=== PATIENT | male | born 1950 | race Caucasian/White ===

== ENCOUNTER 2019-08-23 08:19 | Inpatient (IN) | payer OTHER ==
[~2019-08-23] VITALS: Ht 188 cm; Wt 100.0 kg
[2019-08-23] MEDS ORDERED: methylPREDNISolone sod succ 125mg/2ml vial IV ONE (08:35)
[2019-08-23] MEDS ORDERED: normal saline 1000ML IV soln IVB ONE (08:35)
[2019-08-23] MEDS ORDERED: albuterol 2.5 MG/3 ML nebule CONTNEB PRN (08:35)
[2019-08-23 09:10] LABS: BASOPHILS % (AUTO) 0.3 % (0-1); EOSINOPHILS # (AUTO) 0.2 X10'3 (0-0.9); EOSINOPHILS % (AUTO) 3.6 % (0-6); HEMATOCRIT 43.4 % (42.0-52.0); HEMOGLOBIN 14.5 g/dl (14.0-17.9); LYMPHOCYTES % (AUTO) 16.6 % (21-51); MEAN CORPUSCULAR HEMOGLOBIN 28.8 PG (27.0-31.0); MEAN CORPUSCULAR HGB CONC 33.5 g/dL (33.0-36.5); MEAN PLATELET VOLUME 8.1 FL (7.4-10.4); MONOCYTES # (AUTO) 0.4 X10'3 (0-0.9); MONOCYTES % (AUTO) 7.3 % (2-12); NEUTROPHILS # (AUTO) 4.3 X10'3 (1.8-7.7); NEUTROPHILS % (AUTO) 72.2 % (42-75); PLATELET COUNT 168 X10'3 (140-440); RED BLOOD COUNT 5.05 X10'6 (4.70-6.10); RED CELL DISTRIBUTION WIDTH 17.6 % (11.5-14.5)
[2019-08-23 09:22] LABS: ALANINE AMINOTRANSFERASE 21 U/L (12-78); ALBUMIN 3.6 G/DL (3.4-5.0); ALBUMIN/GLOBULIN RATIO 0.8 (1.1-1.5); ALKALINE PHOSPHATASE 97 IU/L (46-116); ANION GAP 9 (8-16); ASPARTATE AMINO TRANSFERASE 35 U/L (10-37); BILIRUBIN,TOTAL 0.7 MG/DL (0.1-1.0); BLOOD UREA NITROGEN 7 MG/DL (7-18); BUN/CREATININE RATIO 7.4 (5.4-32.0); CALCIUM 8.9 MG/DL (8.5-10.1); CHLORIDE 107 MMOL/L (99-107); CREATININE 0.94 MG/DL (0.60-1.10); GLUCOSE 102 MG/DL (70-104); POTASSIUM 3.5 MMOL/L (3.5-5.1); SODIUM 144 MMOL/L (135-145); TOTAL CARBON DIOXIDE 27.9 MMOL/L (24-32); TOTAL PROTEIN 7.9 G/DL (6.4-8.2); eGFR 80 ML/MIN
[2019-08-23] MEDS ORDERED: iohexol 350MG/ML 100ml bottle IV ONE (09:36)
[2019-08-23] MEDS ORDERED: enoxaparin 80mg/0.8ml syringe SUBCUT ONE (10:40)
[2019-08-23] MEDS ORDERED: enoxaparin 100mg/ml syringe SUBCUT ONE (10:40)
[2019-08-23] MEDS ORDERED: HYDROcodone/acetaminophen 10/325mg tab PO ONE (11:45)
--- NOTE | 2019-08-23 11:50 | NUR ---
UNABLE TO SCAN MEDS IN ROOM. SCANNER NOT WORKING.
[2019-08-23] MEDS ORDERED: mag hydrox/Alum hydrox/simeth 30ml oral suspension PO PRN (12:00)
[2019-08-23] MEDS ORDERED: acetaminophen 325mg tablet PO PRN ×2 (12:00)
[2019-08-23] MEDS ORDERED: morphine 2 MG/ML inj. syringe IV PRN ×2 (12:00)
[2019-08-23] MEDS ORDERED: magnesium hydroxide 30ml (MOM) UD suspension PO PRN (12:00)
[2019-08-23] MEDS ORDERED: HYDROcodone/acetaminophen 5mg/325mg tablet PO PRN (12:00)
[2019-08-23] MEDS ORDERED: ondansetron/PF 4mg/2ml inj IV PRN (12:00)
[2019-08-23] MEDS ORDERED: NO HOME MEDS (12:11)
--- NOTE | 2019-08-23 12:24 | NUR ---
ADDRESS: [address] [place] [address], UNIT: 4, [facility]
--- NOTE | 2019-08-23 13:44 | NUR ---
Patient Sabino Hillyesenia; I have received report from Karen BALL in ER and had the opportunity to ask questions and assume patient care.
--- NOTE | 2019-08-23 14:00 | NUR ---
Pt brought to floor at 1400. Pt alert and oriented. Pt oriented to room and call light. Vitals WNL.
[2019-08-23 15:00] VITALS: BP 148/97
[2019-08-23 18:00] VITALS: BP 148/96
--- NOTE | 2019-08-23 18:00 | NUR ---
Problems reprioritized. Patient report given, questions answered & plan of care reviewed with Neeru BALL.
--- NOTE | 2019-08-23 18:08 | NUR ---
Patient in room PCU 3026. I have received report from QUINN Montejo and had the opportunity to ask questions and assume patient care.
[2019-08-23] MEDS: HYDROcodone/acetaminophen 10/325mg tab PO PRN ×2 (19:29→23:45)
[2019-08-23] MEDS: apixaban 5mg tablet PO SCH (19:30)
[2019-08-23] MEDS ORDERED: enoxaparin 100mg/ml syringe SUBCUT SCH (20:00)
[2019-08-23 22:00] VITALS: BP 139/81
--- NOTE | 2019-08-23 22:26 | NUR ---
Patient's son called and said he will bring in list of meds tomorrow if he can rent a car and come down from [place].
[2019-08-24 02:00] VITALS: BP 122/88
--- NOTE | 2019-08-24 03:37 | NUR ---
MD called and notified for episodes of Bradycardia. Patient is usually sinus tachycardic 100s and 110s, but HR sustained in the 50s for an hour. Now his HR is in the 80s. MD said it's a possible sign the DVT is resolving. No new orders at this time.
[2019-08-24] MEDS: diphenhydrAMINE 25mg capsule PO PRN ×2 (04:21→13:04)
--- NOTE | 2019-08-24 04:29 | NUR ---
notified for new onset itching of face and bilateral arms. New order was given for PO Benedryl 25mg tab give now. Patient thinks it could be the [place] or the petroleum he applied to his lips that's suppose to be for his leg. Addendum: 08/24/19 at 0431 by Neeru Guerra RN No rashes or redness noted.
[2019-08-24 06:00] VITALS: BP 154/88
--- NOTE | 2019-08-24 06:20 | NUR ---
Patient in room PCU 3026. I have received report from Neeru BALL and had the opportunity to ask questions and assume patient care.
--- NOTE | 2019-08-24 06:20 | NUR ---
Problems reprioritized. Patient report given, questions answered & plan of care reviewed with QUINN Montejo.
[2019-08-24 06:25] LABS: BASOPHILS % (AUTO) 0.1 % (0-1); EOSINOPHILS % (AUTO) 0 % (0-6); HEMATOCRIT 39.9 % (42.0-52.0); HEMOGLOBIN 13.6 g/dl (14.0-17.9); LYMPHOCYTES # (AUTO) 0.5 X10'3 (1.1-4.8); LYMPHOCYTES % (AUTO) 8.9 % (21-51); MEAN CORPUSCULAR HEMOGLOBIN 29.3 PG (27.0-31.0); MEAN CORPUSCULAR HGB CONC 34.2 g/dL (33.0-36.5); MEAN CORPUSCULAR VOLUME 85.6 FL (78-98); MEAN PLATELET VOLUME 8.3 FL (7.4-10.4); MONOCYTES # (AUTO) 0.3 X10'3 (0-0.9); MONOCYTES % (AUTO) 5.7 % (2-12); NEUTROPHILS # (AUTO) 4.7 X10'3 (1.8-7.7); NEUTROPHILS % (AUTO) 85.3 % (42-75); PLATELET COUNT 171 X10'3 (140-440); RED BLOOD COUNT 4.65 X10'6 (4.70-6.10); RED CELL DISTRIBUTION WIDTH 17.4 % (11.5-14.5); WHITE BLOOD COUNT 5.5 X10'3 (4.5-11.0)
[2019-08-24 06:36] LABS: ALANINE AMINOTRANSFERASE 24 U/L (12-78); ALBUMIN 3.3 G/DL (3.4-5.0); ALBUMIN/GLOBULIN RATIO 0.8 (1.1-1.5); ALKALINE PHOSPHATASE 91 IU/L (46-116); ANION GAP 10 (8-16); ASPARTATE AMINO TRANSFERASE 32 U/L (10-37); BILIRUBIN,TOTAL 0.4 MG/DL (0.1-1.0); BLOOD UREA NITROGEN 19 MG/DL (7-18); BUN/CREATININE RATIO 18.1 (5.4-32.0); CALCIUM 8.7 MG/DL (8.5-10.1); CHLORIDE 105 MMOL/L (99-107); CREATININE 1.05 MG/DL (0.60-1.10); GLUCOSE 145 MG/DL (70-104); POTASSIUM 3.9 MMOL/L (3.5-5.1); SODIUM 140 MMOL/L (135-145); TOTAL CARBON DIOXIDE 25.3 MMOL/L (24-32); TOTAL PROTEIN 7.6 G/DL (6.4-8.2); eGFR 70 ML/MIN
[2019-08-24] MEDS: ipratropium/albuterol 3ml nebule NEB PRN ×2 (08:16→18:54)
[2019-08-24] MEDS: apixaban 5mg tablet PO SCH ×2 (09:06→19:47)
[2019-08-24 11:00] VITALS: BP 133/78
[2019-08-24] MEDS ORDERED: METO25TA6 PO ×2 (11:28→11:42)
[2019-08-24] MEDS ORDERED: NITR0.4T51 SL (11:28)
[2019-08-24] MEDS ORDERED: BACL-11 PO (11:28)
[2019-08-24] MEDS ORDERED: ATOR10TA PO (11:28)
[2019-08-24] MEDS ORDERED: AMLO5TAB4 PO (11:28)
[2019-08-24] MEDS ORDERED: OMEP-50 PO (11:28)
[2019-08-24] MEDS ORDERED: ASPI-1265 PO (11:28)
[2019-08-24] MEDS ORDERED: GABA-532 PO (11:28)
[2019-08-24] MEDS ORDERED: FERR325T32 PO (11:42)
[2019-08-24] MEDS ORDERED: BACL20TA PO (11:42)
--- NOTE | 2019-08-24 11:50 | NUR ---
PAGER ID: [phone] MESSAGE: Re: Sabino Holman, room: 3026A. Med-rec complete and ready to review. -[place] PCU #[id number] Dr. arcos paged concerning Pt's home meds
[2019-08-24] MEDS: HYDROcodone/acetaminophen 10/325mg tab PO PRN (13:04)
[2019-08-24] MEDS ORDERED: nitroGLYCERIN 0.4mg SUBLingual tab SL PRN (13:40)
[2019-08-24 15:00] VITALS: BP 133/75
[2019-08-24] MEDS: baclofen 10mg tablet PO SCH ×2 (15:03→20:29)
[2019-08-24 18:00] VITALS: BP 139/93
--- NOTE | 2019-08-24 18:30 | NUR ---
Problems reprioritized. Patient report given, questions answered & plan of care reviewed with Kat BALL.
--- NOTE | 2019-08-24 18:42 | NUR ---
Patient in room U 3026. I have received report from QUINN MALDONADO and had the opportunity to ask questions and assume patient care. Addendum: 08/24/19 at 1842 by Lenore Green RN Amended: Links added.
[2019-08-24] MEDS: pantoprazole 40mg Tablet.DR PO SCH (19:46)
[2019-08-24] MEDS: metoprolol tartrate 12.5mg (1/2 tablet) PO SCH (19:47)
[2019-08-24] MEDS: gabapentin 300mg capsule PO SCH (19:47)
[2019-08-24] MEDS ORDERED: metoprolol tartrate 25mg tablet PO SCH (20:00)
[2019-08-24 22:00] VITALS: BP 116/68
[2019-08-25 02:00] VITALS: BP 134/74
--- NOTE | 2019-08-25 04:31 | NUR ---
tried to wean off patient and O2 and after an hour he started complaining if SOB after walking from the bathroom back to his bed, O2 sat was 87-91% with COPD history. Explained pt that weaning off from O2 is being part of the plan for d/c needs and stated that he will wean himself off on his own way. placed him 1L O2 and tolerating well with no complaints
[2019-08-25 05:35] LABS: BASOPHILS % (AUTO) 0.5 % (0-1); EOSINOPHILS # (AUTO) 0.1 X10'3 (0-0.9); EOSINOPHILS % (AUTO) 1.6 % (0-6); HEMATOCRIT 40.3 % (42.0-52.0); HEMOGLOBIN 13.8 g/dl (14.0-17.9); LYMPHOCYTES # (AUTO) 0.8 X10'3 (1.1-4.8); LYMPHOCYTES % (AUTO) 13.5 % (21-51); MEAN CORPUSCULAR HEMOGLOBIN 29.4 PG (27.0-31.0); MEAN CORPUSCULAR HGB CONC 34.3 g/dL (33.0-36.5); MEAN CORPUSCULAR VOLUME 85.9 FL (78-98); MEAN PLATELET VOLUME 7.9 FL (7.4-10.4); MONOCYTES # (AUTO) 0.3 X10'3 (0-0.9); MONOCYTES % (AUTO) 4.5 % (2-12); NEUTROPHILS # (AUTO) 4.5 X10'3 (1.8-7.7); NEUTROPHILS % (AUTO) 79.9 % (42-75); PLATELET COUNT 168 X10'3 (140-440); RED BLOOD COUNT 4.69 X10'6 (4.70-6.10); RED CELL DISTRIBUTION WIDTH 17.1 % (11.5-14.5); WHITE BLOOD COUNT 5.6 X10'3 (4.5-11.0)
--- NOTE | 2019-08-25 06:07 | NUR ---
Problems reprioritized. Patient report given, questions answered & plan of care reviewed with QUINN Benitez. Addendum: 08/25/19 at 0607 by Lenore Green RN Amended: Links added.
--- NOTE | 2019-08-25 06:08 | NUR ---
Patient in room PCU 3026. I have received report from Kat BALL and had the opportunity to ask questions and assume patient care.
[2019-08-25 06:10] LABS: ALANINE AMINOTRANSFERASE 40 U/L (12-78); ALBUMIN 3.3 G/DL (3.4-5.0); ALBUMIN/GLOBULIN RATIO 0.9 (1.1-1.5); ALKALINE PHOSPHATASE 82 IU/L (46-116); ANION GAP 7 (8-16); ASPARTATE AMINO TRANSFERASE 48 U/L (10-37); BILIRUBIN,TOTAL 0.4 MG/DL (0.1-1.0); BLOOD UREA NITROGEN 21 MG/DL (7-18); BUN/CREATININE RATIO 19.8 (5.4-32.0); CALCIUM 8.3 MG/DL (8.5-10.1); CHLORIDE 107 MMOL/L (99-107); CREATININE 1.06 MG/DL (0.60-1.10); GLUCOSE 89 MG/DL (70-104); POTASSIUM 4.2 MMOL/L (3.5-5.1); SODIUM 142 MMOL/L (135-145); TOTAL CARBON DIOXIDE 27.9 MMOL/L (24-32); TOTAL PROTEIN 7.1 G/DL (6.4-8.2); eGFR 69 ML/MIN
[2019-08-25] MEDS: HYDROcodone/acetaminophen 10/325mg tab PO PRN ×3 (06:13→20:18)
[2019-08-25] MEDS: diphenhydrAMINE 25mg capsule PO PRN ×2 (06:15→20:17)
--- NOTE | 2019-08-25 06:25 | NUR ---
Problems reprioritized. Patient report given, questions answered & plan of care reviewed with QUINN Harrison.
[2019-08-25 06:30] VITALS: BP 137/86
--- NOTE | 2019-08-25 06:30 | NUR ---
Patient in room PCU 3026. I have received report from QUINN Benitez and had the opportunity to ask questions and assume patient care.
[2019-08-25] MEDS: apixaban 5mg tablet PO SCH ×2 (07:45→20:17)
[2019-08-25] MEDS: pantoprazole 40mg Tablet.DR PO SCH ×2 (07:45→20:17)
[2019-08-25] MEDS: gabapentin 300mg capsule PO SCH ×2 (07:45→20:16)
[2019-08-25] MEDS: ferrous sulfate 325mg tablet PO SCH (07:45)
[2019-08-25] MEDS: baclofen 10mg tablet PO SCH ×3 (07:46→20:16)
[2019-08-25] MEDS: metoprolol tartrate 12.5mg (1/2 tablet) PO SCH ×2 (07:46→20:00)
[2019-08-25] MEDS: atorvastatin 10mg tablet PO SCH (07:46)
[2019-08-25] MEDS: aspirin 81mg tab.chew PO SCH (07:46)
[2019-08-25 11:00] VITALS: BP 115/72
[2019-08-25 15:00] VITALS: BP 136/78
[2019-08-25] MEDS: ipratropium/albuterol 3ml nebule NEB PRN ×2 (15:26→19:57)
[2019-08-25 18:15] VITALS: BP_SYST 119; BP_SYST 130; BP_DIAS 86; BP_DIAS 91
--- NOTE | 2019-08-25 18:45 | NUR ---
Patient in room PCU 3026. I have received report from Libia Hadley and had the opportunity to ask questions and assume patient care. Addendum: 08/25/19 at 1845 by Christy Hernandez RN Amended: Links added.
[2019-08-25] MEDS: budesonide 0.5mg/2ml UD nebule IH SCH (19:57)
[2019-08-25] MEDS: nystatin 15 GM powder TP SCH (20:21)
--- NOTE | 2019-08-25 20:21 | NUR ---
medicated for pain 8/10 back and neck hardly any from the right leg DVT at this time.
[2019-08-25 22:24] VITALS: BP 143/89
--- NOTE | 2019-08-25 22:51 | NUR ---
pt resting eyes closed no s&S of distress at this time.
--- NOTE | 2019-08-26 | NUR ---
pt inc of urine. skin care done and lien changed. nystatin powder applied after cleaning to the groin area. evs called to clean the floor pt was inc on the floor.
--- NOTE | 2019-08-26 00:20 | NUR ---
medicated pain 02/13 to back with norco per request.
[2019-08-26] MEDS: HYDROcodone/acetaminophen 10/325mg tab PO PRN ×4 (00:26→20:58)
--- NOTE | 2019-08-26 01:17 | NUR ---
bed alarm on pt with charge nurse encouraged to lay back down. pt is impulsive and not compliant to safety precautions that has been gone over with him.
[2019-08-26 02:00] VITALS: BP 119/75
--- NOTE | 2019-08-26 03:10 | NUR ---
pt resting without changes at this time.
--- NOTE | 2019-08-26 04:41 | NUR ---
pt resting eyes closed without changes at this time.
--- NOTE | 2019-08-26 05:10 | NUR ---
pt awoke to side of bed using urinal with Male Rn present for pt safety.
[2019-08-26 06:00] VITALS: BP 128/80
[2019-08-26 06:03] LABS: ALANINE AMINOTRANSFERASE 65 U/L (12-78); ALBUMIN/GLOBULIN RATIO 0.8 (1.1-1.5); ALKALINE PHOSPHATASE 83 IU/L (46-116); ANION GAP 5 (8-16); ASPARTATE AMINO TRANSFERASE 79 U/L (10-37); BASOPHILS % (AUTO) 0.5 % (0-1); BILIRUBIN,TOTAL 0.4 MG/DL (0.1-1.0); BLOOD UREA NITROGEN 17 MG/DL (7-18); BUN/CREATININE RATIO 16.5 (5.4-32.0); CALCIUM 8.3 MG/DL (8.5-10.1); CHLORIDE 106 MMOL/L (99-107); CREATININE 1.03 MG/DL (0.60-1.10); EOSINOPHILS # (AUTO) 0.1 X10'3 (0-0.9); GLUCOSE 95 MG/DL (70-104); HEMATOCRIT 43.1 % (42.0-52.0); HEMOGLOBIN 14.4 g/dl (14.0-17.9); LYMPHOCYTES # (AUTO) 0.6 X10'3 (1.1-4.8); LYMPHOCYTES % (AUTO) 15.3 % (21-51); MEAN CORPUSCULAR HEMOGLOBIN 28.9 PG (27.0-31.0); MEAN CORPUSCULAR HGB CONC 33.4 g/dL (33.0-36.5); MEAN CORPUSCULAR VOLUME 86.5 FL (78-98); MEAN PLATELET VOLUME 7.8 FL (7.4-10.4); MONOCYTES # (AUTO) 0.3 X10'3 (0-0.9); MONOCYTES % (AUTO) 8.3 % (2-12); NEUTROPHILS % (AUTO) 72.9 % (42-75); PLATELET COUNT 160 X10'3 (140-440); POTASSIUM 4.2 MMOL/L (3.5-5.1); RED BLOOD COUNT 4.98 X10'6 (4.70-6.10); RED CELL DISTRIBUTION WIDTH 17.1 % (11.5-14.5); SODIUM 139 MMOL/L (135-145); TOTAL CARBON DIOXIDE 27.8 MMOL/L (24-32); TOTAL PROTEIN 6.8 G/DL (6.4-8.2); WHITE BLOOD COUNT 4.1 X10'3 (4.5-11.0); eGFR 72 ML/MIN
--- NOTE | 2019-08-26 06:28 | NUR ---
Patient in room PCU 3026. I have received report from QUINN Harrison and had the opportunity to ask questions and assume patient care. Patient currently resting in bed, bed locked and low, call light in reach, no acute distress, will continue to monitor.
[2019-08-26] MEDS: pantoprazole 40mg Tablet.DR PO SCH ×2 (07:26→20:55)
[2019-08-26] MEDS: atorvastatin 10mg tablet PO SCH (07:27)
[2019-08-26] MEDS: metoprolol tartrate 12.5mg (1/2 tablet) PO SCH ×2 (07:27→20:54)
[2019-08-26] MEDS: apixaban 5mg tablet PO SCH ×2 (07:27→20:54)
[2019-08-26] MEDS: aspirin 81mg tab.chew PO SCH (07:27)
[2019-08-26] MEDS: ferrous sulfate 325mg tablet PO SCH (07:28)
[2019-08-26] MEDS: gabapentin 300mg capsule PO SCH ×2 (07:28→20:54)
[2019-08-26] MEDS: baclofen 10mg tablet PO SCH ×3 (07:28→20:53)
[2019-08-26] MEDS: nystatin 15 GM powder TP SCH ×2 (07:29→20:55)
[2019-08-26] MEDS: budesonide 0.5mg/2ml UD nebule IH SCH ×2 (09:36→20:25)
[2019-08-26] MEDS: ipratropium/albuterol 3ml nebule NEB PRN ×2 (09:36→20:25)
[2019-08-26] MEDS ORDERED: predniSONE 20 mg tablet PO ONE (10:05)
[2019-08-26] MEDS ORDERED: LIDOcaine/PRILOcaine 5gm cream TP PRN (10:50)
[2019-08-26 11:00] VITALS: BP 109/75
[2019-08-26 15:00] VITALS: BP 110/63
[2019-08-26 20:00] VITALS: BP 135/81
[2019-08-26] MEDS: diphenhydrAMINE 25mg capsule PO PRN (20:57)
[2019-08-27 02:00] VITALS: BP 112/79
[2019-08-27 05:40] LABS: ALANINE AMINOTRANSFERASE 99 U/L (12-78); ALBUMIN 3.3 G/DL (3.4-5.0); ALBUMIN/GLOBULIN RATIO 0.8 (1.1-1.5); ALKALINE PHOSPHATASE 85 IU/L (46-116); ANION GAP 3 (8-16); ASPARTATE AMINO TRANSFERASE 98 U/L (10-37); BILIRUBIN,TOTAL 0.4 MG/DL (0.1-1.0); BLOOD UREA NITROGEN 16 MG/DL (7-18); BUN/CREATININE RATIO 14.7 (5.4-32.0); CALCIUM 8.8 MG/DL (8.5-10.1); CHLORIDE 105 MMOL/L (99-107); CREATININE 1.09 MG/DL (0.60-1.10); GLUCOSE 118 MG/DL (70-104); POTASSIUM 4.5 MMOL/L (3.5-5.1); SODIUM 140 MMOL/L (135-145); TOTAL CARBON DIOXIDE 31.6 MMOL/L (24-32); TOTAL PROTEIN 7.4 G/DL (6.4-8.2); eGFR 67 ML/MIN
[2019-08-27 06:00] VITALS: BP 142/87
--- NOTE | 2019-08-27 06:31 | NUR ---
REPORT GIVEN TO QUINN CAMPOS.
[2019-08-27 06:35] LABS: BASOPHILS % (AUTO) 0.4 % (0-1); EOSINOPHILS # (AUTO) 0.1 X10'3 (0-0.9); EOSINOPHILS % (AUTO) 1.8 % (0-6); HEMATOCRIT 42.8 % (42.0-52.0); HEMOGLOBIN 14.1 g/dl (14.0-17.9); LYMPHOCYTES # (AUTO) 0.8 X10'3 (1.1-4.8); LYMPHOCYTES % (AUTO) 19.1 % (21-51); MEAN CORPUSCULAR HEMOGLOBIN 28.5 PG (27.0-31.0); MEAN CORPUSCULAR VOLUME 86.3 FL (78-98); MEAN PLATELET VOLUME 8.3 FL (7.4-10.4); MONOCYTES # (AUTO) 0.2 X10'3 (0-0.9); MONOCYTES % (AUTO) 5.3 % (2-12); NEUTROPHILS # (AUTO) 2.9 X10'3 (1.8-7.7); NEUTROPHILS % (AUTO) 73.4 % (42-75); PLATELET COUNT 178 X10'3 (140-440); RED BLOOD COUNT 4.96 X10'6 (4.70-6.10); RED CELL DISTRIBUTION WIDTH 17.5 % (11.5-14.5)
[2019-08-27] MEDS: aspirin 81mg tab.chew PO SCH (07:59)
[2019-08-27] MEDS: nystatin 15 GM powder TP SCH (07:59)
[2019-08-27] MEDS: baclofen 10mg tablet PO SCH ×2 (07:59→13:23)
[2019-08-27] MEDS: ferrous sulfate 325mg tablet PO SCH (08:00)
[2019-08-27] MEDS: atorvastatin 10mg tablet PO SCH (08:00)
[2019-08-27] MEDS: apixaban 5mg tablet PO SCH ×2 (08:00→17:56)
[2019-08-27] MEDS: metoprolol tartrate 12.5mg (1/2 tablet) PO SCH (08:00)
[2019-08-27] MEDS: pantoprazole 40mg Tablet.DR PO SCH (08:02)
[2019-08-27] MEDS: gabapentin 300mg capsule PO SCH (08:02)
[2019-08-27] MEDS: budesonide 0.5mg/2ml UD nebule IH SCH (08:12)
[2019-08-27] MEDS: ipratropium/albuterol 3ml nebule NEB PRN (08:12)
[2019-08-27] MEDS ORDERED: predniSONE 20 mg tablet PO SCH (08:30)
[2019-08-27 11:00] VITALS: BP 119/77
[2019-08-27] MEDS: HYDROcodone/acetaminophen 10/325mg tab PO PRN (13:24)
[2019-08-27] MEDS: diphenhydrAMINE 25mg capsule PO PRN (13:26)
--- NOTE | 2019-08-27 14:08 | NUR ---
O2 Sat at rest on room air: 87% If below 89%: Recovery O2 Sat at rest on 2 LPM:_92_nasal cannula, etc..) No further documentation is necessary.
--- NOTE | 2019-08-27 14:17 | NUR ---
PAGER ID: [phone] MESSAGE: [email or web address], [facility] THE O2 IS HERE FOR 2132B AND AT BEDSIDE. THANKS.
[2019-08-27] MEDS ORDERED: PRED20TA PO (14:41)
[2019-08-27] MEDS ORDERED: BUDE10.2 INH (14:41)
[2019-08-27] MEDS ORDERED: APIX5TAB3 PO (14:41)
[2019-08-27 15:00] VITALS: BP 127/72
--- NOTE | 2019-08-27 18:30 | NUR ---
Pt is okay to be discharged per MD. Pt was stable & left the unit with the staff; belongings with the pt. Tele was returned to [facility]; IV was d/c.
--- NOTE | 2019-08-27 18:42 | NUR ---
Problems reprioritized. Patient report given, questions answered & plan of care reviewed with Sulma BALL.
== END 2019-08-27 18:30 | disposition home or self-care (01) | DRG 299 ==
LOC: ER 08:20 → ED HOLD 11:57 → PCU 3S 13:50
PROVIDERS: ADMIT Internal Medicine; ATTEND Internal Medicine
DX: I82.411 Acute embolism and thrombosis of right femoral vein (principal); I26.99 Other pulmonary embolism without acute cor pulmonale; J96.21 Acute and chronic respiratory failure with hypoxia; I82.401 Acute embolism and thrombosis of unspecified deep veins of right lower extremity; J44.9 Chronic obstructive pulmonary disease, unspecified; Z79.01 Long term (current) use of anticoagulants; Z85.46 Personal history of malignant neoplasm of prostate; Z86.73 Personal history of transient ischemic attack (TIA), and cerebral infarction without residual deficits; Z87.891 Personal history of nicotine dependence; G89.4 Chronic pain syndrome
CPT/HCPCS: 36415; 71045; 71275; 80053; 83880; 84484; 85025; 87081; 92508; 92616; 93005; 93306; 93971; 94640; 94760; 97110; 97116; 97161; 97530; 99285; G0378; J1650; J2930; J7030; J7512; J7626; Q0163; Q9967

== ENCOUNTER 2019-09-06 09:56 | Emergency (ER) | payer OTHER ==
[~2019-09-06] VITALS: Ht 188 cm; Wt 91.0 kg
[~2019-09-06 09:56] MED LIST: AMLO5TAB4 PO; APIX5TAB3 PO; ASPI-1265 PO; ATOR10TA PO; BACL-11 PO; BACL20TA PO; BUDE10.2 INH; FERR325T32 PO; GABA-532 PO; METO25TA6 PO; NITR0.4T51 SL; OMEP-50 PO; PRED20TA PO
[2019-09-06] MEDS ORDERED: dexamethasone sod phosphate 10mg/ml inj IV STA (09:58)
--- NOTE | 2019-09-06 11:49 | NUR ---
Pt resting comfortably. Took NC out od his nose, and is currrently 94% on room air.
[2019-09-06 11:54] LABS: BASOPHILS % (AUTO) 0.5 % (0-1); EOSINOPHILS # (AUTO) 0.1 X10'3 (0-0.9); EOSINOPHILS % (AUTO) 1.6 % (0-6); HEMATOCRIT 40.4 % (42.0-52.0); HEMOGLOBIN 13.2 g/dl (14.0-17.9); LYMPHOCYTES # (AUTO) 0.9 X10'3 (1.1-4.8); LYMPHOCYTES % (AUTO) 13.5 % (21-51); MEAN CORPUSCULAR HEMOGLOBIN 28.9 PG (27.0-31.0); MEAN CORPUSCULAR HGB CONC 32.6 g/dL (33.0-36.5); MEAN CORPUSCULAR VOLUME 88.7 FL (78-98); MEAN PLATELET VOLUME 7.7 FL (7.4-10.4); MONOCYTES # (AUTO) 0.4 X10'3 (0-0.9); MONOCYTES % (AUTO) 6.8 % (2-12); NEUTROPHILS # (AUTO) 5.1 X10'3 (1.8-7.7); NEUTROPHILS % (AUTO) 77.6 % (42-75); PLATELET COUNT 201 X10'3 (140-440); RED BLOOD COUNT 4.56 X10'6 (4.70-6.10); RED CELL DISTRIBUTION WIDTH 17.9 % (11.5-14.5); WHITE BLOOD COUNT 6.6 X10'3 (4.5-11.0)
[2019-09-06 12:10] LABS: ALANINE AMINOTRANSFERASE 48 U/L (12-78); ALBUMIN/GLOBULIN RATIO 0.8 (1.1-1.5); ALKALINE PHOSPHATASE 101 IU/L (46-116); ANION GAP 2 (8-16); ASPARTATE AMINO TRANSFERASE 35 U/L (10-37); BILIRUBIN,TOTAL 0.3 MG/DL (0.1-1.0); BLOOD UREA NITROGEN 17 MG/DL (7-18); BUN/CREATININE RATIO 19.5 (5.4-32.0); CALCIUM 8.6 MG/DL (8.5-10.1); CHLORIDE 109 MMOL/L (99-107); CREATININE 0.87 MG/DL (0.60-1.10); GLUCOSE 98 MG/DL (70-104); POTASSIUM 4.7 MMOL/L (3.5-5.1); SODIUM 140 MMOL/L (135-145); TOTAL CARBON DIOXIDE 28.6 MMOL/L (24-32); TOTAL PROTEIN 6.9 G/DL (6.4-8.2); eGFR 87 ML/MIN
[2019-09-06] MEDS ORDERED: PRED20TA PO (12:19)
[2019-09-06] MEDS ORDERED: DOXY100C43 PO (12:19)
[2019-09-06] MEDS ORDERED: ALBU8HFA PO (12:19)
[2019-09-06 12:45] VITALS: BP 126/76
== END 2019-09-06 13:43 | disposition home or self-care (01) ==
LOC: ER 09:57 → CANBEDREQ 10:55 → ER 13:43
DX: J44.1 Chronic obstructive pulmonary disease with (acute) exacerbation (principal); Z20.828 Contact with and (suspected) exposure to other viral communicable diseases; J22 Unspecified acute lower respiratory infection; I82.401 Acute embolism and thrombosis of unspecified deep veins of right lower extremity; I10 Essential (primary) hypertension; G89.29 Other chronic pain; Z86.711 Personal history of pulmonary embolism; Z86.73 Personal history of transient ischemic attack (TIA), and cerebral infarction without residual deficits; Z88.8 Allergy status to other drugs, medicaments and biological substances; Z79.01 Long term (current) use of anticoagulants; Z79.899 Other long term (current) drug therapy
CPT/HCPCS: 36415; 71045; 80053; 83605; 83880; 84145; 84484; 85025; 87040; 87077; 87186; 87635; 93005; 96374; 99285; J1100

== ENCOUNTER 2019-09-17 13:31 | Emergency (ER) | payer OTHER ==
[~2019-09-17] VITALS: Ht 188 cm; Wt 80.0 kg
[~2019-09-17 13:31] MED LIST changes: +ALBU8HFA PO; +DOXY100C43 PO
[2019-09-17] MEDS ORDERED: tranexamic acid 100mg/ml inj. TP ONE ×2 (14:25→14:45)
[2019-09-17] MEDS ORDERED: HYDROcodone/acetaminophen 5mg/325mg tablet PO ONE (14:40)
[2019-09-17 15:10] VITALS: BP 123/85
== END 2019-09-17 15:11 | disposition home or self-care (01) ==
LOC: ER 13:31
DX: S41.111A Laceration without foreign body of right upper arm, initial encounter (principal); D68.9 Coagulation defect, unspecified; R22.41 Localized swelling, mass and lump, right lower limb; I10 Essential (primary) hypertension; J44.9 Chronic obstructive pulmonary disease, unspecified; G89.29 Other chronic pain; Z86.73 Personal history of transient ischemic attack (TIA), and cerebral infarction without residual deficits; Z86.711 Personal history of pulmonary embolism; Z86.718 Personal history of other venous thrombosis and embolism; Z88.8 Allergy status to other drugs, medicaments and biological substances; Z79.01 Long term (current) use of anticoagulants; Z79.82 Long term (current) use of aspirin; Z79.899 Other long term (current) drug therapy; X58.XXXA Exposure to other specified factors, initial encounter; Y93.89 Activity, other specified; Y92.89 Other specified places as the place of occurrence of the external cause; Y99.8 Other external cause status
CPT/HCPCS: 99284